=== PATIENT | female | born 1975 | race Caucasian/White ===

== ENCOUNTER 2020-05-13 15:47 | Emergency (ER) | payer OTHER ==
[~2020-05-13 15:47] MED LIST: BENTYL10 MG PO; ZOFRAN4 MG PO
[2020-05-13 16:24] LABS: BASOPHIL 1.4 % (0-2); HCT 39.5 % (37.0-47.0); HGB 12.9 g/dl (12.5-16.0); LYMPHOCYTE 22.3 % (15-48); MCH 31.5 pg (25.0-31.0); MCHC 32.7 g/dL (32.0-36.0); MCV 96.6 fL (78.0-100.0); MONOCYTE 6.4 % (0-12); MPV 9.3 fL (6.0-9.5); NEUTROPHIL 53.4 % (41-80); NRBC 0; PLT 679 K/uL (150-400); RBC 4.09 M/uL (4.20-5.40); RDW 13.4 % (11.5-14.0); WBC 12.8 K/uL (4.0-10.5)
[2020-05-13 16:27] LABS: EOSINOPHIL 16.1 % (0-5)
[2020-05-13 16:30] LABS: ALBUMIN 3.6 g/dL (3.4-5.0); BILIRUBIN - TOTAL 0.3 mg/dL (0.2-1.0); BUN/CREAT RATIO (CALC) 16.7 RATIO; CREATININE 0.6 mg/dL (0.51-0.95); GLOBULIN (CALCULATION) 4.6 g/dL; TOTAL PROTEIN 8.2 g/dL (6.4-8.2)
[2020-05-13 16:34] LABS: PROTHROMBIN TIME 12.5 SECONDS (11.4-13.6); PTT 30.2 SECONDS (22.2-34.7)
[2020-05-13 16:36] LABS: D-DIMER 0.42 ug/mLFEU (0.00-0.41)
== END 2020-05-13 20:04 | disposition home or self-care (01) ==
LOC: FER 15:47
PROVIDERS: Emergency Medicine
DX: R07.89 Other chest pain (principal); K52.9 Noninfective gastroenteritis and colitis, unspecified; R00.0 Tachycardia, unspecified; I10 Essential (primary) hypertension; E66.9 Obesity, unspecified; Z88.5 Allergy status to narcotic agent; Z79.899 Other long term (current) drug therapy
CPT/HCPCS: 36415; 71045; 71275; 80053; 84484; 85025; 85379; 85610; 85730; 93005; J2270; J2405; Q9967